=== PATIENT | male | born 1950 | race Caucasian/White ===

== ENCOUNTER 2021-07-08 18:54 | Emergency (ER) | payer MEDICARE ==
[~2021-07-08] VITALS: Ht 182.9 cm; Wt 102.1 kg
[2021-07-08 19:20] VITALS: BP 135/75
[2021-07-08 19:30] LABS: BASOPHILS % (AUTO) 0.5 % (0.0-5.0); EOSINOPHILS % (AUTO) 3.8 % (0.0-8.0); HEMATOCRIT 43.6 % (42-54); LYMPHOCYTES % (AUTO) 8.9 % (21.0-51.0); MEAN CORPUSCULAR HEMOGLOBIN 31.6 pg (27.0-33.0); MEAN CORPUSCULAR HGB CONC 34.2 g/dL (32.0-36.0); MEAN CORPUSCULAR VOLUME 92.4 fL (79-99); MONOCYTES % (AUTO) 10.4 % (3.0-13.0); NEUTROPHILS % (AUTO) 76.1 % (40.0-77.0); PLATELET COUNT (AUTO) 215 K/uL (130-400); RED BLOOD CELL COUNT(AUTO) 4.72 MIL/uL (4.50-6.20); RED CELL DISTRIBUTION WIDTH 12.4 % (11.0-15.5); WHITE BLOOD COUNT (AUTO) 9.5 K/uL (4.8-10.8)
[2021-07-08 19:48] LABS: INR 1.02 (0.85-1.15); PROTHROMBIN TIME 11.1 SEC (9.6-11.6)
[2021-07-08 19:49] LABS: PARTIAL THROMBOPLASTIN TIME 27.7 SEC (26.3-35.5)
[2021-07-08 19:52] LABS: B-TYPE NATRIURETIC PEPTIDE 28 pg/mL (0-100)
[2021-07-08 19:53] LABS: ALBUMIN 2.5 g/dL (3.5-5.0); BILIRUBIN,TOTAL 0.3 mg/dL (0.2-1.0); CREATININE 0.8 mg/dL (0.5-1.5); TOTAL PROTEIN, SERUM 5.4 g/dL (6.0-8.3)
[2021-07-08 19:57] LABS: POTASSIUM 2.6 mmol/L (3.5-5.1)
[2021-07-08 20:00] VITALS: BP 147/83
[2021-07-08] MEDS ORDERED: 0.9%NACL 1000ML 1,000 ML IV ONE ×2 (20:22→20:30)
[2021-07-08] MEDS ORDERED: PANTOPRAZOLE 40 MG/VIAL IVP SCH (20:30)
[2021-07-08] MEDS ORDERED: FAMOTIDINE 20MG VIAL IV ONE (20:30)
[2021-07-08 21:00] VITALS: BP 141/71
[2021-07-08] MEDS ORDERED: IOHEXOL 350 MG/ML 100ML INFUS..BTL IV ONE (21:22)
[2021-07-08] MEDS ORDERED: POTASSIUM BICARB/CIT AC 25 MEQ TABLET.EFF PO ONE (21:30)
[2021-07-08] MEDS ORDERED: POTASSIUM BICARB/CIT AC 25 MEQ TABLET.EFF ONE (21:53)
[2021-07-08 22:00] VITALS: BP 151/80
[2021-07-08] MEDS ORDERED: PROCHLORPERAZINE 10MG/2ML INJ IV ONE (22:30)
[2021-07-08] MEDS ORDERED: MORPHINE 4 MG SYG IV ONE (22:30)
[2021-07-08 23:32] VITALS: BP 145/82
[2021-07-08 23:36] LABS: APPEARANCE,URINE Clear (CLEAR); BILIRUBIN,URINE Negative (NEGATIVE); COLOR,URINE Yellow (YELLOW); GLUCOSE, URINE (UA) Negative (NEGATIVE); KETONES,URINE 15 mg/dL (NEGATIVE); LEUKOCYTE ESTERASE ,URINE Negative (NEGATIVE); NITRATE,URINE Negative (NEGATIVE); OCCULT BLOOD,URINE Negative (NEGATIVE); PROTEIN,URINE Negative (NEGATIVE)
[2021-07-08] MEDS ORDERED: TRAM50TA4 PO (23:50)
[2021-07-08] MEDS ORDERED: FAMO-136 PO (23:50)
[2021-07-09 00:03] VITALS: BP 153/87
== END 2021-07-09 00:04 | disposition home or self-care (01) ==
LOC: EDH 18:54
DX: K27.9 Peptic ulcer, site unspecified, unspecified as acute or chronic, without hemorrhage or perforation (principal); I10 Essential (primary) hypertension; Z87.19 Personal history of other diseases of the digestive system; K29.70 Gastritis, unspecified, without bleeding
CPT/HCPCS: 36415; 71045; 74177; 80053; 81003; 82550; 83690; 83880; 84484; 85025; 85610; 85730; 93005; 96361; 96374; 96375; C9113; J0780; J2270; J3490; J7030; Q9967

== ENCOUNTER 2021-08-26 11:40 | Inpatient (IN) | payer MEDICARE ==
[~2021-08-26] VITALS: Ht 190.5 cm; Wt 90.2 kg
[~2021-08-26 11:40] MED LIST: FAMO-136 PO; TRAM50TA4 PO
[2021-08-26 12:17] LABS: BASOPHILS % (AUTO) 0.3 % (0.0-5.0); EOSINOPHILS % (AUTO) 0.1 % (0.0-8.0); HEMATOCRIT 44.7 % (42-54); LYMPHOCYTES % (AUTO) 3.1 % (21.0-51.0); MEAN CORPUSCULAR HEMOGLOBIN 30.6 pg (27.0-33.0); MEAN CORPUSCULAR HGB CONC 33.1 g/dL (32.0-36.0); MEAN CORPUSCULAR VOLUME 92.5 fL (79-99); MONOCYTES % (AUTO) 6.8 % (3.0-13.0); NEUTROPHILS % (AUTO) 89.4 % (40.0-77.0); PLATELET COUNT (AUTO) 246 K/uL (130-400); RED BLOOD CELL COUNT(AUTO) 4.83 MIL/uL (4.50-6.20); RED CELL DISTRIBUTION WIDTH 13.3 % (11.0-15.5); WHITE BLOOD COUNT (AUTO) 15.6 K/uL (4.8-10.8)
[2021-08-26 12:30] LABS: CREATININE 0.9 mg/dL (0.5-1.5); POTASSIUM 4.2 mmol/L (3.5-5.1)
[2021-08-26 12:43] LABS: ALBUMIN 3.6 g/dL (3.5-5.0); BILIRUBIN,TOTAL 0.7 mg/dL (0.2-1.0); TOTAL PROTEIN, SERUM 7.2 g/dL (6.0-8.3)
[2021-08-26] MEDS ORDERED: ZOSYN 3.375GM+NS 50ML 3.38 GM in 0.9%NACL 50ML 50 ML IV SCH (17:00)
[2021-08-26] MEDS ORDERED: LACTATED RINGERS 1000ML 1,000 ML IV ONE (18:00)
[2021-08-26] MEDS ORDERED: ONDANSETRON 4MG INJ ONE (18:49)
[2021-08-26] MEDS: 0.9%NACL 50ML 50 ML IV SCH (18:57)
[2021-08-26] MEDS: MORPHINE 2 MG SYG IVP PRN (18:57)
[2021-08-26] MEDS: ZOSYN 3.375GM +NS 50ML IV SCH (18:57)
[2021-08-26 22:50] VITALS: BP 162/119
[2021-08-26] MEDS ORDERED: MORPHINE 4 MG SYG ONE (23:05)
[2021-08-26] MEDS ORDERED: MORPHINE 4 MG SYG IV ONE (23:30)
[2021-08-26] MEDS ORDERED: HYDRALAZINE 20MG/ML VIAL IV SCH (23:30)
[2021-08-26] MEDS ORDERED: OMEP20TA25 PO (23:36)
[2021-08-26] MEDS ORDERED: ATOR20TA65 PO (23:36)
[2021-08-26] MEDS ORDERED: AMLO2.5T4 PO (23:36)
[2021-08-26] MEDS ORDERED: MULT1CAP PO (23:36)
[2021-08-26] MEDS ORDERED: LOSA100T58 PO (23:36)
[2021-08-26] MEDS ORDERED: [UNRECOGNIZED DRUG - OTHER] PO (23:36)
[2021-08-27 00:23] VITALS: BP 122/77
[2021-08-27 00:48] LABS: APPEARANCE,URINE Clear (CLEAR); BILIRUBIN,URINE Small (NEGATIVE); COLOR,URINE Dark Yellow (YELLOW); GLUCOSE, URINE (UA) Negative (NEGATIVE); KETONES,URINE 15 mg/dL (NEGATIVE); LEUKOCYTE ESTERASE ,URINE Negative (NEGATIVE); NITRATE,URINE Negative (NEGATIVE); OCCULT BLOOD,URINE Negative (NEGATIVE); PH,URINE 5.5 (5.0-8.0); PROTEIN,URINE POS 1+ mg/dL (NEGATIVE)
[2021-08-27 00:58] LABS: BACTERIA,URINE Few /HPF (None Seen); RBC,URINE None Seen /HPF (0-1); WBC,URINE None Seen /HPF (0-1)
[2021-08-27] MEDS: ZOSYN 3.375GM +NS 50ML IV SCH ×3 (02:36→19:02)
[2021-08-27] MEDS: 0.9%NACL 50ML 50 ML IV SCH ×3 (02:36→19:02)
[2021-08-27] MEDS: MORPHINE 2 MG SYG IVP PRN ×3 (02:37→15:22)
[2021-08-27 04:00] VITALS: BP 138/76
[2021-08-27 07:34] LABS: BASOPHILS % (AUTO) 0.1 % (0.0-5.0); HEMATOCRIT 43.5 % (42-54); LYMPHOCYTES % (AUTO) 2.5 % (21.0-51.0); MEAN CORPUSCULAR HEMOGLOBIN 30.4 pg (27.0-33.0); MEAN CORPUSCULAR HGB CONC 32.9 g/dL (32.0-36.0); MEAN CORPUSCULAR VOLUME 92.6 fL (79-99); MONOCYTES % (AUTO) 4.4 % (3.0-13.0); NEUTROPHILS % (AUTO) 92.6 % (40.0-77.0); PLATELET COUNT (AUTO) 220 K/uL (130-400); RED CELL DISTRIBUTION WIDTH 13.7 % (11.0-15.5); WHITE BLOOD COUNT (AUTO) 15.8 K/uL (4.8-10.8)
[2021-08-27 08:00] VITALS: BP 143/82
[2021-08-27] MEDS ORDERED: LACTULOSE 20 GM/30 ML UDCUP PO PRN (10:00)
[2021-08-27 10:19] LABS: HEMOGLOBIN A1C 5.9 % (4.0-6.0)
[2021-08-27 12:00] VITALS: BP 143/90
[2021-08-27] MEDS ORDERED: KETOROLAC 15MG/ML VIAL (15MG/ML) IV PRN (15:00)
[2021-08-27 16:00] VITALS: BP 138/76
[2021-08-27] MEDS: KETOROLAC 15MG/ML VIAL (15MG/ML) IV SCH ×2 (16:12→21:21)
[2021-08-27 20:00] VITALS: BP 137/82
[2021-08-27] MEDS ORDERED: LACTATED RINGERS 1000ML 1,000 ML IV ONE (20:09)
[2021-08-28] VITALS (25 sets, daily range): BP systolic 102–135; BP diastolic 52–77
[2021-08-28] MEDS: MORPHINE 2 MG SYG IVP PRN ×2 (00:52→09:13)
[2021-08-28] MEDS: 0.9%NACL 50ML 50 ML IV SCH ×3 (01:24→16:35)
[2021-08-28] MEDS: ZOSYN 3.375GM +NS 50ML IV SCH ×3 (01:24→16:35)
[2021-08-28] MEDS: KETOROLAC 15MG/ML VIAL (15MG/ML) IV SCH ×4 (03:40→22:02)
[2021-08-28 06:00] LABS: BASOPHILS % (AUTO) 0.1 % (0.0-5.0); HEMATOCRIT 38.9 % (42-54); LYMPHOCYTES % (AUTO) 3.4 % (21.0-51.0); MEAN CORPUSCULAR HEMOGLOBIN 30.3 pg (27.0-33.0); MEAN CORPUSCULAR HGB CONC 32.9 g/dL (32.0-36.0); NEUTROPHILS % (AUTO) 92.9 % (40.0-77.0); PLATELET COUNT (AUTO) 189 K/uL (130-400); RED BLOOD CELL COUNT(AUTO) 4.23 MIL/uL (4.50-6.20); WHITE BLOOD COUNT (AUTO) 12.6 K/uL (4.8-10.8)
[2021-08-28 06:20] LABS: ALBUMIN 2.5 g/dL (3.5-5.0); BILIRUBIN,TOTAL 1.6 mg/dL (0.2-1.0); POTASSIUM 3.6 mmol/L (3.5-5.1); TOTAL PROTEIN, SERUM 6.3 g/dL (6.0-8.3)
[2021-08-28] MEDS ORDERED: ROCURONIUM 10MG/1ML SYR 10 MG/ML ML ONE (12:06)
[2021-08-28] MEDS ORDERED: LIDOCAINE PF 100MG/5ML (2%) SYRINGE 5ML ONE (12:06)
[2021-08-28] MEDS ORDERED: ONDANSETRON 4MG INJ ONE (12:06)
[2021-08-28] MEDS ORDERED: MIDAZOLAM HCL 1 MG/ML 2ML VIAL ONE (12:06)
[2021-08-28] MEDS ORDERED: PROPOFOL 10 MG/ML 20ML VIAL IV ONE (12:06)
[2021-08-28] MEDS ORDERED: FENTANYL CITRATE PF 50 MCG/1 ML 2ML VIAL ONE (12:07)
[2021-08-28] MEDS ORDERED: BUPIVACAINE/PF 0.5% 30ML VIAL ONE (12:35)
[2021-08-28] MEDS: LACTATED RINGERS 1000ML 1,000 ML IV ONE ×2 (12:58→13:40)
[2021-08-28] MEDS ORDERED: MEPERIDINE-PF 25 MG/ML SYG ONE ×2 (13:24→14:05)
[2021-08-28] MEDS ORDERED: GLYCOPYRROLATE 1 MG/5 ML SYRINGE ONE (13:25)
[2021-08-28] MEDS ORDERED: NEOSTIGMINE 5MG/5ML SYR IV ONE (13:25)
[2021-08-28] MEDS ORDERED: KETOROLAC 15MG/ML VIAL (15MG/ML) ONE (14:14)
[2021-08-29] MEDS: 0.9%NACL 50ML 50 ML IV SCH ×3 (00:46→17:20)
[2021-08-29] MEDS: ZOSYN 3.375GM +NS 50ML IV SCH ×3 (00:46→17:20)
[2021-08-29] MEDS: KETOROLAC 15MG/ML VIAL (15MG/ML) IV SCH ×4 (03:16→21:39)
[2021-08-29 03:44] VITALS: BP 121/77
[2021-08-29 04:41] LABS: BASOPHILS % (AUTO) 0.3 % (0.0-5.0); EOSINOPHILS % (AUTO) 1.7 % (0.0-8.0); HEMATOCRIT 34.6 % (42-54); LYMPHOCYTES % (AUTO) 8.4 % (21.0-51.0); MEAN CORPUSCULAR HEMOGLOBIN 30.2 pg (27.0-33.0); MEAN CORPUSCULAR HGB CONC 32.1 g/dL (32.0-36.0); MONOCYTES % (AUTO) 4.7 % (3.0-13.0); NEUTROPHILS % (AUTO) 84.5 % (40.0-77.0); PLATELET COUNT (AUTO) 166 K/uL (130-400); RED BLOOD CELL COUNT(AUTO) 3.68 MIL/uL (4.50-6.20); RED CELL DISTRIBUTION WIDTH 13.8 % (11.0-15.5); WHITE BLOOD COUNT (AUTO) 7.2 K/uL (4.8-10.8)
[2021-08-29 04:59] LABS: ALBUMIN 1.9 g/dL (3.5-5.0); BILIRUBIN,TOTAL 1.2 mg/dL (0.2-1.0); CREATININE 0.9 mg/dL (0.5-1.5); POTASSIUM 3.3 mmol/L (3.5-5.1); TOTAL PROTEIN, SERUM 5.6 g/dL (6.0-8.3)
[2021-08-29 07:00] VITALS: BP 129/77
[2021-08-29] MEDS ORDERED: METR-172 PO (08:41)
[2021-08-29] MEDS ORDERED: LEVO500T89 PO (08:41)
[2021-08-29 11:00] VITALS: BP 125/70
[2021-08-29 15:00] VITALS: BP 124/74
[2021-08-29 20:00] VITALS: BP 133/81
[2021-08-30] VITALS: BP 133/76
[2021-08-30] MEDS: ZOSYN 3.375GM +NS 50ML IV SCH ×3 (02:39→17:40)
[2021-08-30] MEDS: 0.9%NACL 50ML 50 ML IV SCH ×3 (02:39→17:40)
[2021-08-30 04:00] VITALS: BP 140/64
[2021-08-30 05:14] LABS: BASOPHILS % (AUTO) 0.5 % (0.0-5.0); EOSINOPHILS % (AUTO) 9.9 % (0.0-8.0); HEMATOCRIT 33.3 % (42-54); LYMPHOCYTES % (AUTO) 11.2 % (21.0-51.0); MEAN CORPUSCULAR HEMOGLOBIN 30.4 pg (27.0-33.0); MONOCYTES % (AUTO) 9.1 % (3.0-13.0); NEUTROPHILS % (AUTO) 68.6 % (40.0-77.0); PLATELET COUNT (AUTO) 192 K/uL (130-400); RED BLOOD CELL COUNT(AUTO) 3.62 MIL/uL (4.50-6.20); RED CELL DISTRIBUTION WIDTH 13.4 % (11.0-15.5)
[2021-08-30 05:25] LABS: ALBUMIN 1.9 g/dL (3.5-5.0); CREATININE 0.8 mg/dL (0.5-1.5); POTASSIUM 3.4 mmol/L (3.5-5.1); TOTAL PROTEIN, SERUM 5.6 g/dL (6.0-8.3)
[2021-08-30] MEDS: KETOROLAC 15MG/ML VIAL (15MG/ML) IV SCH ×4 (06:20→21:38)
[2021-08-30 08:00] VITALS: BP 138/75
[2021-08-30 12:00] VITALS: BP 140/78
[2021-08-30] MEDS ORDERED: AMLODIPINE 2.5 MG TAB PO SCH (14:00)
[2021-08-30 16:00] VITALS: BP 148/80
[2021-08-30 20:04] VITALS: BP 139/76
[2021-08-31 00:04] VITALS: BP 129/68
[2021-08-31 04:04] VITALS: BP 124/66
[2021-08-31] MEDS: 0.9%NACL 50ML 50 ML IV SCH ×2 (04:29→07:31)
[2021-08-31] MEDS: ZOSYN 3.375GM +NS 50ML IV SCH ×2 (04:29→07:31)
[2021-08-31] MEDS: KETOROLAC 15MG/ML VIAL (15MG/ML) IV SCH ×2 (04:31→09:05)
[2021-08-31 04:42] LABS: BASOPHILS % (AUTO) 0.8 % (0.0-5.0); EOSINOPHILS % (AUTO) 10.2 % (0.0-8.0); HEMATOCRIT 35.5 % (42-54); LYMPHOCYTES % (AUTO) 14.9 % (21.0-51.0); MEAN CORPUSCULAR HEMOGLOBIN 30.1 pg (27.0-33.0); MEAN CORPUSCULAR HGB CONC 32.7 g/dL (32.0-36.0); MEAN CORPUSCULAR VOLUME 92.2 fL (79-99); MONOCYTES % (AUTO) 10.2 % (3.0-13.0); NEUTROPHILS % (AUTO) 62.9 % (40.0-77.0); PLATELET COUNT (AUTO) 220 K/uL (130-400); RED BLOOD CELL COUNT(AUTO) 3.85 MIL/uL (4.50-6.20); RED CELL DISTRIBUTION WIDTH 13.4 % (11.0-15.5); WHITE BLOOD COUNT (AUTO) 6.3 K/uL (4.8-10.8)
[2021-08-31 05:05] LABS: BILIRUBIN,TOTAL 0.9 mg/dL (0.2-1.0); CREATININE 0.8 mg/dL (0.5-1.5); POTASSIUM 3.3 mmol/L (3.5-5.1); TOTAL PROTEIN, SERUM 6.1 g/dL (6.0-8.3)
[2021-08-31] MEDS ORDERED: KCL 20 MEQ ERTAB PO ONE ×2 (05:30→05:36)
[2021-08-31 08:00] VITALS: BP 148/85
[2021-08-31] MEDS ORDERED: AMLODIPINE 5 MG TAB PO SCH (09:00)
[2021-08-31 12:00] VITALS: BP 131/85
== END 2021-08-31 13:35 | disposition home or self-care (01) | DRG 417 ==
LOC: EDH 11:40 → EDHIP 16:47 → 4CH 23:04
PROVIDERS: ADMIT Internal Medicine; ATTEND Internal Medicine
PROC: 0FT44ZZ Resection of Gallbladder, Percutaneous Endoscopic Approach (ICD-10-PCS; principal; 2021-08-28 12:45)
DX: K80.00 Calculus of gallbladder with acute cholecystitis without obstruction (principal); K65.0 Generalized (acute) peritonitis; E43 Unspecified severe protein-calorie malnutrition; K82.A2 Perforation of gallbladder in cholecystitis; Z20.822 Contact with and (suspected) exposure to COVID-19; K21.9 Gastro-esophageal reflux disease without esophagitis; E78.00 Pure hypercholesterolemia, unspecified; I10 Essential (primary) hypertension; E78.5 Hyperlipidemia, unspecified; K82.8 Other specified diseases of gallbladder; K59.00 Constipation, unspecified; K82.A1 Gangrene of gallbladder in cholecystitis; E80.7 Disorder of bilirubin metabolism, unspecified; N40.0 Benign prostatic hyperplasia without lower urinary tract symptoms; E87.6 Hypokalemia; Z68.24 Body mass index [BMI] 24.0-24.9, adult; Z82.61 Family history of arthritis; Z82.49 Family history of ischemic heart disease and other diseases of the circulatory system
CPT/HCPCS: 36415; 71045; 74176; 76705; 80048; 80053; 81001; 82550; 83036; 83690; 83874; 84484; 85025; 86900; 86901; 87635; 93005; G0378; J1885; J2001; J2175; J2250; J2270; J2405; J2543; J2704; J2710; J3010; J3490; J7030; J7120

== ENCOUNTER 2022-03-25 18:56 | Inpatient (IN) | payer MEDICARE ==
[~2022-03-25] VITALS: Ht 182.9 cm; Wt 97.5 kg
[~2022-03-25 18:56] MED LIST changes: +AMLO2.5T4 PO; +ATOR20TA65 PO; -FAMO-136 PO; +LEVO500T90 PO; +METR-172 PO; +MULT1CAP PO; +OMEP20TA20 PO; -TRAM50TA4 PO; +[UNRECOGNIZED DRUG - OTHER] PO
[2022-03-25] MEDS ORDERED: ONDANSETRON 4MG INJ IVP ONE (19:30)
[2022-03-25] MEDS ORDERED: TETANUS/DIPHTHERIA TOXOID [ADULT] 0.5 ML VIAL IM ONE ×2 (19:30→20:35)
[2022-03-25] MEDS ORDERED: ACETAMINOPHEN 325 MG TAB PO ONE (19:30)
[2022-03-25] MEDS ORDERED: 0.9%NACL 1000ML 1,000 ML IV ONE (19:30)
[2022-03-25 19:36] LABS: BASOPHILS % (AUTO) 0.4 % (0.0-5.0); HEMATOCRIT 44.9 % (42-54); LYMPHOCYTES % (AUTO) 3.7 % (21.0-51.0); MEAN CORPUSCULAR HEMOGLOBIN 31.5 pg (27.0-33.0); MEAN CORPUSCULAR HGB CONC 32.7 g/dL (32.0-36.0); MEAN CORPUSCULAR VOLUME 96.4 fL (79-99); MONOCYTES % (AUTO) 0.8 % (3.0-13.0); NEUTROPHILS % (AUTO) 94.9 % (40.0-77.0); PLATELET COUNT (AUTO) 178 K/uL (130-400); RED BLOOD CELL COUNT(AUTO) 4.66 MIL/uL (4.50-6.20); RED CELL DISTRIBUTION WIDTH 13.2 % (11.0-15.5); WHITE BLOOD COUNT (AUTO) 5.1 K/uL (4.8-10.8)
[2022-03-25 19:49] LABS: CREATININE 1.2 mg/dL (0.5-1.5); POTASSIUM 3.5 mmol/L (3.5-5.1)
[2022-03-25 19:54] LABS: ALBUMIN 3.2 g/dL (3.5-5.0); BILIRUBIN,TOTAL 0.6 mg/dL (0.2-1.0); MAGNESIUM 1.2 mg/dL (1.80-2.40); TOTAL PROTEIN, SERUM 6.8 g/dL (6.0-8.3)
[2022-03-25 19:59] LABS: INR 1.07 (0.85-1.15); PROTHROMBIN TIME 11.6 SEC (9.6-11.6)
[2022-03-25 20:00] LABS: PARTIAL THROMBOPLASTIN TIME 25.4 SEC (26.3-35.5)
[2022-03-25] MEDS ORDERED: 0.9%NACL 1000ML 2,328 ML IV ONE (20:00)
[2022-03-25] MEDS ORDERED: CEFTRIAXONE 2GM VIAL IVP ONE (20:00)
[2022-03-25] MEDS ORDERED: ONDANSETRON 4MG INJ ONE (20:34)
[2022-03-25] MEDS ORDERED: ACETAMINOPHEN 325 MG TAB ONE (20:35)
[2022-03-25 20:56] LABS: APPEARANCE,URINE Clear (CLEAR); BILIRUBIN,URINE Negative (NEGATIVE); COLOR,URINE Yellow (YELLOW); GLUCOSE, URINE (UA) Negative (NEGATIVE); KETONES,URINE Negative (NEGATIVE); LEUKOCYTE ESTERASE ,URINE Trace (NEGATIVE); NITRATE,URINE Negative (NEGATIVE); OCCULT BLOOD,URINE Negative (NEGATIVE); PROTEIN,URINE POS 1+ mg/dL (NEGATIVE)
[2022-03-25 21:15] LABS: BACTERIA,URINE Few /HPF (None Seen); RBC,URINE 0-1 /HPF (0-1)
[2022-03-25 21:16] LABS: SQUAMOUS EPITHELIAL CELL,UR Rare /HPF (0-2)
[2022-03-25] MEDS ORDERED: DIPHENHYDRAMINE HCL 25 MG CAPSULE PO PRN (22:30)
[2022-03-25] MEDS ORDERED: GUAIFENESIN-DM 200/20 MG 10 ML PO PRN (22:30)
[2022-03-25] MEDS ORDERED: ONDANSETRON 4MG INJ IV PRN (22:30)
[2022-03-25] MEDS ORDERED: HYDRALAZINE 20MG/ML VIAL IV PRN (22:30)
[2022-03-25] MEDS ORDERED: ACETAMINOPHEN 325 MG TAB PO PRN (22:30)
[2022-03-25] MEDS ORDERED: LACTULOSE 20 GM/30 ML UDCUP PO PRN (22:30)
[2022-03-25] MEDS ORDERED: NITROGLYCERIN 0.4 MG SL TAB SL PRN (22:30)
[2022-03-25] MEDS ORDERED: MAG/ALUM/SIMETH 30 ML UDCUP PO PRN (22:30)
[2022-03-25] MEDS: MAGNESIUM 2GM PREMIX 50ML 50 ML IV SCH (23:08)
[2022-03-25] MEDS: 0.9%NACL 1000ML 1,000 ML IV SCH (23:26)
[2022-03-26 01:30] VITALS: BP 129/69
[2022-03-26 04:16] VITALS: BP 125/68
[2022-03-26] MEDS: ZOSYN 3.375GM+NS 50ML 50 ML IV SCH ×3 (04:33→20:22)
[2022-03-26] MEDS: MAGNESIUM 2GM PREMIX 50ML 50 ML IV SCH ×2 (06:53→12:46)
[2022-03-26 07:00] VITALS: BP 110/68
[2022-03-26] MEDS: FAMOTIDINE 20MG VIAL IV SCH ×2 (10:01→20:23)
[2022-03-26] MEDS ORDERED: LOSA1TAB42 PO (10:45)
[2022-03-26] MEDS ORDERED: CARB15DR OP (10:45)
[2022-03-26] MEDS: ACETAMINOPHEN WITH CODEINE 1 TAB TAB PO PRN ×2 (11:03→17:24)
[2022-03-26 11:36] VITALS: BP 143/74
[2022-03-26] MEDS ORDERED: VANCOMYCIN PROTOCOL PER PHARMACY IV SCH (13:30)
[2022-03-26] MEDS ORDERED: VANCOMYCIN 1.5 GM/250 ML BAG 250 ML IV SCH (14:30)
[2022-03-26 16:00] VITALS: BP 148/83
[2022-03-26 19:30] VITALS: BP 124/79
[2022-03-26] MEDS: PANTOPRAZOLE 40 MG TAB DR PO SCH (20:23)
[2022-03-26] MEDS: VANCOMYCIN 1.25 GM/250 ML BAG 250 ML IV SCH (20:23)
[2022-03-26] MEDS: 0.9%NACL 1000ML 1,000 ML IV SCH (21:37)
[2022-03-27] MEDS: 0.9%NACL 1000ML 1,000 ML IV SCH (00:12)
[2022-03-27 00:20] VITALS: BP 153/83
[2022-03-27 04:20] VITALS: BP 156/89
[2022-03-27] MEDS: ZOSYN 3.375GM+NS 50ML 50 ML IV SCH ×3 (04:32→19:46)
[2022-03-27 05:29] LABS: ALBUMIN 2.6 g/dL (3.5-5.0); BILIRUBIN,TOTAL 0.5 mg/dL (0.2-1.0); MAGNESIUM 2.4 mg/dL (1.80-2.40); POTASSIUM 3.4 mmol/L (3.5-5.1); TOTAL PROTEIN, SERUM 6.2 g/dL (6.0-8.3)
[2022-03-27 07:00] VITALS: BP 155/88
[2022-03-27] MEDS: FAMOTIDINE 20MG VIAL IV SCH ×2 (09:00→19:45)
[2022-03-27] MEDS: PANTOPRAZOLE 40 MG TAB DR PO SCH ×2 (09:00→19:45)
[2022-03-27] MEDS: VANCOMYCIN 1.25 GM/250 ML BAG 250 ML IV SCH (09:37)
[2022-03-27] MEDS: AMLODIPINE 2.5 MG TAB PO SCH (09:37)
[2022-03-27] MEDS ORDERED: FUROSEMIDE 20MG VIAL IV SCH (10:30)
[2022-03-27] MEDS ORDERED: KCL 20 MEQ ERTAB PO SCH (11:00)
[2022-03-27 12:01] VITALS: BP 167/82
[2022-03-27] MEDS: ACETAMINOPHEN WITH CODEINE 1 TAB TAB PO PRN (12:25)
[2022-03-27 16:30] VITALS: BP 160/92
[2022-03-27 19:00] VITALS: BP 145/76
[2022-03-28] VITALS: BP 134/79
[2022-03-28 04:00] VITALS: BP 144/79
[2022-03-28] MEDS: ZOSYN 3.375GM+NS 50ML 50 ML IV SCH ×3 (04:06→20:55)
[2022-03-28 05:00] LABS: POTASSIUM 3.2 mmol/L (3.5-5.1)
[2022-03-28 07:24] VITALS: BP 146/75
[2022-03-28] MEDS: PANTOPRAZOLE 40 MG TAB DR PO SCH ×2 (09:00→20:59)
[2022-03-28] MEDS: AMLODIPINE 2.5 MG TAB PO SCH (09:00)
[2022-03-28] MEDS: FAMOTIDINE 20MG VIAL IV SCH ×2 (09:34→20:56)
[2022-03-28] MEDS ORDERED: LIDOCAINE HCL-MPF 1% 2ML VIAL IV PRN ×2 (10:00)
[2022-03-28] MEDS ORDERED: POTASSIUM CHLORIDE 20MEQ/100ML 100 ML IV PRN ×2 (10:00)
[2022-03-28] MEDS ORDERED: POTASSIUM CHLORIDE 10% ELIXIR 20 MEQ/15 ML UDCUP PO PRN (10:00)
[2022-03-28] MEDS: KCL 20 MEQ ERTAB PO PRN ×2 (10:16→13:43)
[2022-03-28 11:21] VITALS: BP 148/78
[2022-03-28 16:00] VITALS: BP 151/92
[2022-03-28] MEDS: ACETAMINOPHEN WITH CODEINE 1 TAB TAB PO PRN (16:37)
[2022-03-28 19:00] VITALS: BP 138/78
[2022-03-29] VITALS: BP 135/70
[2022-03-29 04:00] VITALS: BP 166/80
[2022-03-29] MEDS: ZOSYN 3.375GM+NS 50ML 50 ML IV SCH ×3 (04:15→20:56)
[2022-03-29 06:55] VITALS: BP 159/85
[2022-03-29] MEDS: FAMOTIDINE 20MG VIAL IV SCH ×2 (09:00→20:55)
[2022-03-29] MEDS: AMLODIPINE 2.5 MG TAB PO SCH (09:00)
[2022-03-29] MEDS: PANTOPRAZOLE 40 MG TAB DR PO SCH ×2 (09:28→20:56)
[2022-03-29 11:00] VITALS: BP 144/81
[2022-03-29 16:00] VITALS: BP 137/81
[2022-03-29 19:00] VITALS: BP 159/87
[2022-03-30] VITALS: BP 150/78
[2022-03-30 04:00] VITALS: BP 150/76
[2022-03-30] MEDS: ZOSYN 3.375GM+NS 50ML 50 ML IV SCH (04:08)
[2022-03-30] MEDS: PANTOPRAZOLE 40 MG TAB DR PO SCH (08:34)
[2022-03-30] MEDS: AMLODIPINE 2.5 MG TAB PO SCH (08:35)
[2022-03-30] MEDS: FAMOTIDINE 20MG VIAL IV SCH (08:35)
[2022-03-30 09:40] VITALS: BP 163/82
[2022-03-30 13:15] VITALS: BP 149/73
== END 2022-03-30 15:40 | disposition home or self-care (01) | DRG 871 ==
LOC: EDH 18:56 → EDHIP 22:23 → 3BH 03-26 01:29
PROVIDERS: ADMIT Hospitalist; ATTEND Hospitalist
DX: A41.9 Sepsis, unspecified organism (principal); J18.9 Pneumonia, unspecified organism; N39.0 Urinary tract infection, site not specified; E83.42 Hypomagnesemia; Z20.822 Contact with and (suspected) exposure to COVID-19; I10 Essential (primary) hypertension; E78.5 Hyperlipidemia, unspecified; E66.9 Obesity, unspecified; K21.9 Gastro-esophageal reflux disease without esophagitis; Z90.49 Acquired absence of other specified parts of digestive tract; Z68.29 Body mass index [BMI] 29.0-29.9, adult; S01.81XA Laceration without foreign body of other part of head, initial encounter
CPT/HCPCS: 36415; 70450; 70486; 71045; 71250; 72125; 74176; 80048; 80053; 81001; 82550; 83605; 83735; 83880; 84145; 84484; 85025; 85610; 85730; 86000; 87040; 87071; 87077; 87088; 87186; 87205; 87635; 87804; 87880; 90714; 93005; 93306; 97039; C9803; G0378; J0696; J1940; J2405; J2543; J3475; J3490; J7030

== ENCOUNTER 2022-04-02 11:38 | Emergency (ER) | payer MEDICARE ==
[~2022-04-02] VITALS: Ht 182.9 cm; Wt 86.2 kg
[~2022-04-02 11:38] MED LIST changes: -ATOR20TA65 PO; +CARB15DR OP; -LEVO500T90 PO; +LOSA1TAB42 PO; -METR-172 PO; -[UNRECOGNIZED DRUG - OTHER] PO
[2022-04-02 12:09] LABS: BASOPHILS % (AUTO) 0.4 % (0.0-5.0); EOSINOPHILS % (AUTO) 0.1 % (0.0-8.0); HEMATOCRIT 46.9 % (42-54); LYMPHOCYTES % (AUTO) 8.5 % (21.0-51.0); MEAN CORPUSCULAR HEMOGLOBIN 31.1 pg (27.0-33.0); MEAN CORPUSCULAR HGB CONC 32.4 g/dL (32.0-36.0); MEAN CORPUSCULAR VOLUME 96.1 fL (79-99); MONOCYTES % (AUTO) 9.9 % (3.0-13.0); NEUTROPHILS % (AUTO) 80.6 % (40.0-77.0); PLATELET COUNT (AUTO) 345 K/uL (130-400); RED BLOOD CELL COUNT(AUTO) 4.88 MIL/uL (4.50-6.20); WHITE BLOOD COUNT (AUTO) 8.5 K/uL (4.8-10.8)
[2022-04-02 12:13] LABS: APPEARANCE,URINE Clear (CLEAR); BILIRUBIN,URINE Negative (NEGATIVE); COLOR,URINE Yellow (YELLOW); GLUCOSE, URINE (UA) Negative (NEGATIVE); KETONES,URINE Trace mg/dL (NEGATIVE); LEUKOCYTE ESTERASE ,URINE Trace (NEGATIVE); NITRATE,URINE Negative (NEGATIVE); OCCULT BLOOD,URINE Nonhemolyzed Trace (NEGATIVE); PH,URINE 6.5 (5.0-8.0); PROTEIN,URINE Negative (NEGATIVE); UROBILINOGEN,URINE 0.2 mg/dL (0.2-1.0)
[2022-04-02 12:27] LABS: ALBUMIN 3.4 g/dL (3.5-5.0); BACTERIA,URINE Rare /HPF (None Seen); BILIRUBIN,TOTAL 0.6 mg/dL (0.2-1.0); POTASSIUM 3.4 mmol/L (3.5-5.1); RBC,URINE 0-1 /HPF (0-1); SQUAMOUS EPITHELIAL CELL,UR Few /HPF (0-2); TOTAL PROTEIN, SERUM 8.7 g/dL (6.0-8.3); WBC,URINE 0-1 /HPF (0-1)
[2022-04-02] MEDS ORDERED: ACETAMINOPHEN 500 MG TABLET PO ONE (12:30)
[2022-04-02] MEDS ORDERED: IBUPROFEN 800 MG TAB PO ONE (12:30)
[2022-04-02] MEDS ORDERED: 0.9%NACL 1000ML 1,000 ML IV SCH (12:30)
[2022-04-02] MEDS ORDERED: POTASSIUM BICARB/CIT AC 25 MEQ TABLET.EFF PO ONE (13:30)
[2022-04-02 14:09] VITALS: BP 133/67
[2022-04-02 14:20] LABS: INFLUENZA TYPE A NEGATIVE FOR TYPE A (NEG)
[2022-04-02 14:21] LABS: INFLUENZA TYPE B NEGATIVE FOR TYPE B (NEG)
[2022-04-02] MEDS ORDERED: IBUP-2071 PO (14:41)
== END 2022-04-02 15:10 | disposition home or self-care (01) ==
LOC: EDH 11:38
DX: B34.9 Viral infection, unspecified (principal); E86.0 Dehydration; Z20.822 Contact with and (suspected) exposure to COVID-19
CPT/HCPCS: 36415; 71045; 80053; 81001; 83605; 84484; 85025; 87040 ×2; 87635; 87804 ×2; 93005; 96360; 99285; C9803; J7030

== ENCOUNTER → 2022-05-23 | Outpatient (CLI) | payer MEDICARE ==
[~2022-05-23] MED LIST changes: +GADOTERATE MEGLUMINE 10 MMOL/20 ML VIAL IV ONE; +IBUP-2071 PO; +METO-408 PO
== END | disposition home or self-care (01) ==
LOC: RAH 13:26
PROVIDERS: ATTEND Nurse Practitioner Adult Health
DX: M50.023 Cervical disc disorder at C6-C7 level with myelopathy (principal); M47.812 Spondylosis without myelopathy or radiculopathy, cervical region; M79.601 Pain in right arm; M62.81 Muscle weakness (generalized); G06.1 Intraspinal abscess and granuloma; R60.9 Edema, unspecified; M25.80 Other specified joint disorders, unspecified joint
CPT/HCPCS: 72156; A9575

== ENCOUNTER 2022-05-24 07:43 | Inpatient (IN) | payer MEDICARE ==
[~2022-05-24] VITALS: Ht 182.9 cm; Wt 92.1 kg
[~2022-05-24 07:43] MED LIST changes: -GADOTERATE MEGLUMINE 10 MMOL/20 ML VIAL IV ONE; -METO-408 PO
[2022-05-24] MEDS ORDERED: VANCOMYCIN 1G 1.5 GM in 0.9% NACL 250ML 250 ML IV SCH (08:10)
[2022-05-24] MEDS ORDERED: ZOSYN 3.375GM +NS 50ML IV SCH ×2 (08:10→11:30)
[2022-05-24 08:31] LABS: BASOPHILS % (AUTO) 1.6 % (0.0-5.0); EOSINOPHILS % (AUTO) 7.1 % (0.0-8.0); HEMATOCRIT 43.9 % (42-54); LYMPHOCYTES % (AUTO) 23.6 % (21.0-51.0); MEAN CORPUSCULAR HEMOGLOBIN 31.2 pg (27.0-33.0); MEAN CORPUSCULAR HGB CONC 32.6 g/dL (32.0-36.0); MEAN CORPUSCULAR VOLUME 95.9 fL (79-99); MONOCYTES % (AUTO) 15.8 % (3.0-13.0); NEUTROPHILS % (AUTO) 51.6 % (40.0-77.0); PLATELET COUNT (AUTO) 191 K/uL (130-400); RED BLOOD CELL COUNT(AUTO) 4.58 MIL/uL (4.50-6.20); WHITE BLOOD COUNT (AUTO) 3.7 K/uL (4.8-10.8)
[2022-05-24 08:41] LABS: POTASSIUM 4.3 mmol/L (3.5-5.1)
[2022-05-24 08:42] LABS: INR 0.94 (0.85-1.15); PROTHROMBIN TIME 10.3 SEC (9.6-11.6)
[2022-05-24 08:43] LABS: PARTIAL THROMBOPLASTIN TIME 26.2 SEC (26.3-35.5)
[2022-05-24 08:45] LABS: ALBUMIN 3.7 g/dL (3.5-5.0); BILIRUBIN,TOTAL 0.4 mg/dL (0.2-1.0); TOTAL PROTEIN, SERUM 7.6 g/dL (6.0-8.3)
[2022-05-24 08:52] LABS: APPEARANCE,URINE CLEAR (CLEAR); BILIRUBIN,URINE NEGATIVE (NEGATIVE); COLOR,URINE YELLOW (YELLOW); GLUCOSE, URINE (UA) NEGATIVE (NEGATIVE); KETONES,URINE NEGATIVE (NEGATIVE); LEUKOCYTE ESTERASE ,URINE NEGATIVE (NEGATIVE); NITRATE,URINE NEGATIVE (NEGATIVE); OCCULT BLOOD,URINE NEGATIVE (NEGATIVE); PROTEIN,URINE NEGATIVE (NEGATIVE); UROBILINOGEN,URINE 0.2 mg/dL (0.2-1.0)
[2022-05-24] MEDS ORDERED: VANCOMYCIN PROTOCOL PER PHARMACY IV SCH (11:30)
[2022-05-24] MEDS ORDERED: HYDROMORPHONE 1 MG INJ IV PRN (11:30)
[2022-05-24] MEDS ORDERED: HYDROCODONE/ACETAMINOPHEN 5/325 MG TAB PO PRN (11:30)
[2022-05-24] MEDS ORDERED: METOPROLOL TARTRATE 1 MG/ML 5ML VIAL IV PRN (12:00)
[2022-05-24] MEDS ORDERED: METO-408 PO (12:02)
[2022-05-24] MEDS: PANTOPRAZOLE 40 MG/VIAL IVP SCH (12:08)
[2022-05-24 13:15] VITALS: BP 143/78
[2022-05-24 16:00] VITALS: BP 124/73
[2022-05-24 20:00] VITALS: BP 127/77
[2022-05-24] MEDS: VANCOMYCIN 1.25 GM/250 ML BAG 250 ML IV SCH (20:08)
[2022-05-24] MEDS: ZOSYN 3.375GM +NS 50ML IV SCH (22:14)
[2022-05-25] VITALS: BP 132/80
[2022-05-25 04:00] VITALS: BP 137/77
[2022-05-25 04:28] LABS: BASOPHILS % (AUTO) 1.1 % (0.0-5.0); EOSINOPHILS % (AUTO) 7.1 % (0.0-8.0); HEMATOCRIT 38.4 % (42-54); MEAN CORPUSCULAR HEMOGLOBIN 31.6 pg (27.0-33.0); MEAN CORPUSCULAR HGB CONC 33.3 g/dL (32.0-36.0); MEAN CORPUSCULAR VOLUME 94.8 fL (79-99); MONOCYTES % (AUTO) 16.8 % (3.0-13.0); NEUTROPHILS % (AUTO) 49.7 % (40.0-77.0); PLATELET COUNT (AUTO) 181 K/uL (130-400); RED BLOOD CELL COUNT(AUTO) 4.05 MIL/uL (4.50-6.20); RED CELL DISTRIBUTION WIDTH 13.9 % (11.0-15.5); WHITE BLOOD COUNT (AUTO) 3.7 K/uL (4.8-10.8)
[2022-05-25 04:35] LABS: CREATININE 0.9 mg/dL (0.5-1.5)
[2022-05-25] MEDS: ZOSYN 3.375GM +NS 50ML IV SCH ×3 (05:47→21:35)
[2022-05-25 07:35] VITALS: BP 143/84
[2022-05-25] MEDS: PANTOPRAZOLE 40 MG/VIAL IVP SCH (09:17)
[2022-05-25] MEDS: VANCOMYCIN 1.25 GM/250 ML BAG 250 ML IV SCH ×2 (09:39→21:35)
[2022-05-25 11:10] VITALS: BP 135/79
[2022-05-25 15:05] VITALS: BP 126/81
[2022-05-25 20:00] VITALS: BP 110/72
[2022-05-26] VITALS (7 sets, daily range): BP systolic 117–132; BP diastolic 67–83
[2022-05-26 04:34] LABS: POTASSIUM 3.8 mmol/L (3.5-5.1)
[2022-05-26] MEDS: ZOSYN 3.375GM +NS 50ML IV SCH ×3 (04:38→20:38)
[2022-05-26 04:39] LABS: HEMATOCRIT 40.5 % (42-54); MEAN CORPUSCULAR HEMOGLOBIN 30.8 pg (27.0-33.0); MEAN CORPUSCULAR HGB CONC 32.3 g/dL (32.0-36.0); MEAN CORPUSCULAR VOLUME 95.3 fL (79-99); RED BLOOD CELL COUNT(AUTO) 4.25 MIL/uL (4.50-6.20); WHITE BLOOD COUNT (AUTO) 3.7 K/uL (4.8-10.8)
[2022-05-26] MEDS: VANCOMYCIN 1.25 GM/250 ML BAG 250 ML IV SCH ×2 (09:26→20:44)
[2022-05-26] MEDS: PANTOPRAZOLE 40 MG/VIAL IVP SCH (09:26)
[2022-05-27] VITALS (7 sets, daily range): BP systolic 117–134; BP diastolic 64–80
[2022-05-27] MEDS: ZOSYN 3.375GM +NS 50ML IV SCH ×3 (05:59→20:28)
[2022-05-27 08:02] LABS: HEMATOCRIT 43.2 % (42-54); MEAN CORPUSCULAR HGB CONC 32.4 g/dL (32.0-36.0); MEAN CORPUSCULAR VOLUME 95.6 fL (79-99); RED BLOOD CELL COUNT(AUTO) 4.52 MIL/uL (4.50-6.20); RED CELL DISTRIBUTION WIDTH 13.8 % (11.0-15.5); WHITE BLOOD COUNT (AUTO) 3.7 K/uL (4.8-10.8)
[2022-05-27 08:07] LABS: CREATININE 0.9 mg/dL (0.5-1.5); POTASSIUM 3.9 mmol/L (3.5-5.1)
[2022-05-27] MEDS: VANCOMYCIN 1.25 GM/250 ML BAG 250 ML IV SCH ×2 (09:05→20:30)
[2022-05-27] MEDS: PANTOPRAZOLE 40 MG/VIAL IVP SCH (09:06)
[2022-05-28] VITALS (26 sets, daily range): BP systolic 119–139; BP diastolic 66–91
[2022-05-28 05:04] LABS: HEMATOCRIT 39.3 % (42-54); MEAN CORPUSCULAR HEMOGLOBIN 31.3 pg (27.0-33.0); MEAN CORPUSCULAR HGB CONC 33.1 g/dL (32.0-36.0); MEAN CORPUSCULAR VOLUME 94.7 fL (79-99); RED BLOOD CELL COUNT(AUTO) 4.15 MIL/uL (4.50-6.20); RED CELL DISTRIBUTION WIDTH 13.7 % (11.0-15.5); WHITE BLOOD COUNT (AUTO) 4.3 K/uL (4.8-10.8)
[2022-05-28] MEDS: ZOSYN 3.375GM +NS 50ML IV SCH ×3 (05:12→20:16)
[2022-05-28 05:19] LABS: CREATININE 0.8 mg/dL (0.5-1.5); POTASSIUM 3.8 mmol/L (3.5-5.1)
[2022-05-28 08:01] LABS: INR 0.97 (0.85-1.15); PROTHROMBIN TIME 10.6 SEC (9.6-11.6)
[2022-05-28 08:02] LABS: PARTIAL THROMBOPLASTIN TIME 26.3 SEC (26.3-35.5)
[2022-05-28] MEDS: PANTOPRAZOLE 40 MG/VIAL IVP SCH (08:22)
[2022-05-28] MEDS: VANCOMYCIN 1.25 GM/250 ML BAG 250 ML IV SCH ×2 (08:22→21:17)
[2022-05-28] MEDS ORDERED: THROMBIN-JMI 20000 UNIT KIT TP ONE (11:19)
[2022-05-28] MEDS ORDERED: CEFAZOLIN SODIUM 1 GM VIAL ONE (11:19)
[2022-05-28] MEDS ORDERED: BUPIVACAINE/EPI/PF 0.5% 30ML VIAL IJ ONE (11:19)
[2022-05-28] MEDS ORDERED: LACTATED RINGERS 1000ML 1,000 ML IV ONE (11:22)
[2022-05-28] MEDS ORDERED: SUCCINYLCHOLINE CHLORIDE 20 MG/ML 10 ML VIAL ONE (11:23)
[2022-05-28] MEDS ORDERED: LIDOCAINE PF 100MG/5ML (2%) SYRINGE 5ML ONE (11:23)
[2022-05-28] MEDS ORDERED: MIDAZOLAM HCL 1 MG/ML 2ML VIAL ONE (11:24)
[2022-05-28] MEDS ORDERED: NEOSTIGMINE 5MG/5ML SYR IV ONE (11:24)
[2022-05-28] MEDS ORDERED: ONDANSETRON 4MG INJ ONE (11:24)
[2022-05-28] MEDS ORDERED: DEXAMETHASONE SOD PHOSPHATE 10MG/ML 1ML VIAL ONE ×2 (11:24→11:27)
[2022-05-28] MEDS ORDERED: PROPOFOL 10 MG/ML 20ML VIAL IV ONE (11:24)
[2022-05-28] MEDS ORDERED: GLYCOPYRROLATE 1 MG/5 ML SYRINGE ONE (11:24)
[2022-05-28] MEDS ORDERED: ROCURONIUM 10MG/1ML SYR 10 MG/ML ML ONE (11:25)
[2022-05-28] MEDS ORDERED: FENTANYL CITRATE PF 50 MCG/1 ML 2ML VIAL ONE ×2 (11:25→15:20)
[2022-05-28] MEDS ORDERED: VANCOMYCIN 1G VIAL ONE (11:28)
[2022-05-28] MEDS ORDERED: ARTIFICIAL TEARS 3.5 GM OINTMENT ONE (15:14)
[2022-05-28] MEDS ORDERED: KETOROLAC 15MG/ML VIAL (15MG/ML) IV PRN (17:00)
[2022-05-28] MEDS ORDERED: MORPHINE 2 MG SYG IVP PRN (17:00)
[2022-05-29 04:05] VITALS: BP 134/77
[2022-05-29 04:59] LABS: HEMATOCRIT 39.9 % (42-54); MEAN CORPUSCULAR HGB CONC 32.6 g/dL (32.0-36.0); MEAN CORPUSCULAR VOLUME 95.2 fL (79-99); RED BLOOD CELL COUNT(AUTO) 4.19 MIL/uL (4.50-6.20); RED CELL DISTRIBUTION WIDTH 13.5 % (11.0-15.5); WHITE BLOOD COUNT (AUTO) 7.8 K/uL (4.8-10.8)
[2022-05-29 05:11] LABS: POTASSIUM 4.4 mmol/L (3.5-5.1)
[2022-05-29] MEDS: ZOSYN 3.375GM +NS 50ML IV SCH ×3 (05:15→20:35)
[2022-05-29] MEDS ORDERED: KETOROLAC 15MG/ML VIAL (15MG/ML) IV PRN (05:30)
[2022-05-29 08:00] VITALS: BP 136/78
[2022-05-29] MEDS: VANCOMYCIN 1.25 GM/250 ML BAG 250 ML IV SCH ×2 (09:33→20:35)
[2022-05-29] MEDS: PANTOPRAZOLE 40 MG/VIAL IVP SCH (09:33)
[2022-05-29 11:05] VITALS: BP 127/76
[2022-05-29 15:10] VITALS: BP 141/81
[2022-05-29 20:52] VITALS: BP 116/66
[2022-05-29 23:47] VITALS: BP 106/58
[2022-05-30 04:00] VITALS: BP 106/58
[2022-05-30 04:14] LABS: BASOPHILS % (AUTO) 0.3 % (0.0-5.0); EOSINOPHILS % (AUTO) 1.2 % (0.0-8.0); HEMATOCRIT 35.6 % (42-54); LYMPHOCYTES % (AUTO) 19.6 % (21.0-51.0); MEAN CORPUSCULAR HEMOGLOBIN 30.9 pg (27.0-33.0); MEAN CORPUSCULAR HGB CONC 32.6 g/dL (32.0-36.0); MEAN CORPUSCULAR VOLUME 94.9 fL (79-99); MONOCYTES % (AUTO) 14.2 % (3.0-13.0); NEUTROPHILS % (AUTO) 64.1 % (40.0-77.0); PLATELET COUNT (AUTO) 171 K/uL (130-400); RED BLOOD CELL COUNT(AUTO) 3.75 MIL/uL (4.50-6.20); WHITE BLOOD COUNT (AUTO) 6.5 K/uL (4.8-10.8)
[2022-05-30 04:29] LABS: CREATININE 1.2 mg/dL (0.5-1.5); POTASSIUM 3.3 mmol/L (3.5-5.1)
[2022-05-30 04:33] VITALS: BP 116/69
[2022-05-30] MEDS: ZOSYN 3.375GM +NS 50ML IV SCH ×2 (05:35→12:23)
[2022-05-30 08:00] VITALS: BP 125/78
[2022-05-30] MEDS: PANTOPRAZOLE 40 MG/VIAL IVP SCH (09:05)
[2022-05-30 11:29] VITALS: BP 122/73
[2022-05-30 16:00] VITALS: BP 137/68
== END 2022-05-30 16:37 | disposition home or self-care (01) | DRG 518 ==
LOC: EDH 07:43 → EDHIP 11:11 → 4CH 13:01 → 4BH 05-25 08:21
PROVIDERS: ADMIT Hospitalist; ATTEND Hospitalist
PROC: 0RB30ZZ Excision of Cervical Vertebral Disc, Open Approach (ICD-10-PCS; principal; 2022-05-28 11:52)
PROC: 02H633Z Insertion of Infusion Device into Right Atrium, Percutaneous Approach (ICD-10-PCS; 2022-05-29)
PROC: 009U3ZZ Drainage of Spinal Canal, Percutaneous Approach (ICD-10-PCS; 2022-05-29)
PROC: B01B1ZZ Fluoroscopy of Spinal Cord using Low Osmolar Contrast (ICD-10-PCS; 2022-05-29)
DX: M46.22 Osteomyelitis of vertebra, cervical region (principal); G06.2 Extradural and subdural abscess, unspecified; M46.42 Discitis, unspecified, cervical region; G62.9 Polyneuropathy, unspecified; Z20.822 Contact with and (suspected) exposure to COVID-19; I10 Essential (primary) hypertension; Z90.49 Acquired absence of other specified parts of digestive tract; E78.5 Hyperlipidemia, unspecified; Z79.899 Other long term (current) drug therapy; Z87.11 Personal history of peptic ulcer disease; Z87.440 Personal history of urinary (tract) infections; Z82.49 Family history of ischemic heart disease and other diseases of the circulatory system; K21.9 Gastro-esophageal reflux disease without esophagitis; I73.9 Peripheral vascular disease, unspecified; E66.9 Obesity, unspecified; Z68.27 Body mass index [BMI] 27.0-27.9, adult
CPT/HCPCS: 36415; 71045; 72020; 72156; 80048; 80053; 80202; 81003; 82550; 83605; 84484; 85025; 85027; 85610; 85651; 85730; 87040; 87070; 87088; 87205; 87635; 93005; A4344; C1894; C9113; G0378; J0330; J0690; J1100; J2001; J2250; J2405; J2543; J2704; J2710; J3010; J3370; J3490; J7050; J7120

== ENCOUNTER → 2022-06-26 | Outpatient (CLI) | payer MEDICARE ==
[~2022-06-26] MED LIST changes: -IBUP-2071 PO; +METO-408 PO
== END | disposition home or self-care (01) ==
LOC: RAH 08:29
PROVIDERS: ATTEND Neurological Surgery
DX: M50.323 Other cervical disc degeneration at C6-C7 level (principal); M43.22 Fusion of spine, cervical region; M43.8X2 Other specified deforming dorsopathies, cervical region
CPT/HCPCS: 72040

== ENCOUNTER → 2022-08-27 | Outpatient (CLI) | payer MEDICARE | END | disposition home or self-care (01) | LOC: RAH 13:39 | PROVIDERS: ATTEND Neurological Surgery | DX: M46.20 Osteomyelitis of vertebra, site unspecified (principal) | CPT/HCPCS: 72125 ==

== ENCOUNTER → 2023-04-22 | Outpatient (CLI) | payer MEDICARE ==
[~2023-04-22] MED LIST changes: +ATOR10 PO; -CARB15DR OP; -METO-408 PO; -OMEP20TA20 PO; +UBID1CAP56 PO
== END | disposition home or self-care (01) ==
LOC: RAH 08:52
PROVIDERS: ATTEND Neurological Surgery
DX: M43.22 Fusion of spine, cervical region (principal)
CPT/HCPCS: 72040

== ENCOUNTER → 2024-04-17 | Outpatient (CLI) | payer MEDICARE | END | disposition home or self-care (01) | LOC: RAH 08:22 | PROVIDERS: ATTEND Nurse Practitioner Adult Health | DX: M47.812 Spondylosis without myelopathy or radiculopathy, cervical region (principal); G89.18 Other acute postprocedural pain; M54.2 Cervicalgia; Z98.1 Arthrodesis status | CPT/HCPCS: 72040 ==